=== PATIENT | female | born 1950 | race Caucasian/White ===

== ENCOUNTER 2022-03-14 07:13 | Day surgery (SDC) | payer OTHER, MEDICARE ==
[2022-03-10 16:12] VITALS: BMI 17.4
[2022-03-14] MEDS ORDERED: PROPOFOL 20 ML ONE ×8 (07:44→09:01)
[2022-03-14] MEDS ORDERED: LIDOCAINE HCL/PF 2% SDV 5ML VIAL ONE (07:44)
[2022-03-14 09:33] VITALS: PULSE 72; TEMP 96.8
[2022-03-14 10:38] VITALS: BP 119/60
== END 2022-03-14 10:39 | disposition home or self-care (01) ==
LOC: FASU-ENDO 07:13
PROVIDERS: ATTEND Internal Medicine Gastroenterology
PROC: 0DBP8ZX Excision of Rectum, Via Natural or Artificial Opening Endoscopic, Diagnostic (ICD-10-PCS; 2022-03-14)
PROC: 0DBH8ZX Excision of Cecum, Via Natural or Artificial Opening Endoscopic, Diagnostic (ICD-10-PCS; principal; 2022-03-14 08:45)
DX: Z12.11 Encounter for screening for malignant neoplasm of colon (principal); D12.0 Benign neoplasm of cecum; D12.8 Benign neoplasm of rectum; K64.1 Second degree hemorrhoids; K57.30 Diverticulosis of large intestine without perforation or abscess without bleeding; K64.4 Residual hemorrhoidal skin tags
CPT/HCPCS: 88305-TC